=== PATIENT | male | born 1970 | race Caucasian/White ===

== ENCOUNTER 2016-07-06 15:18 | Emergency (ER) | payer MEDICARE ==
[2016-07-06] MEDS ORDERED: LEVOFLOXACIN 750MG/150ML D5W 150 ML IV ONE ×2 (15:35→16:05)
--- NOTE | 2016-07-06 15:54 | ERPHSYRPT ---
- History of Present Illness Time Seen by Provider: 07/06/16 15:48 Source: patient, family Exam Limitations: no limitations Patient Subjective Stated Complaint: lt lower leg swelling and rt lower arm swelling Triage Nursing Assessment: swelling started yesterday. lt lower leg red to below knee and swelling to lower leg and foot. pedal pulse present. rt forearm slightly swollen with no redness. no fever. Physician History: lt lower leg swelling and rt lower arm swelling swelling started yesterday. lt lower leg red to below knee and swelling to lower leg and foot. Method of Injury: unknown Occurred: yesterday Quality: constant Severity of Pain-Max: mild Severity of Pain-Current: mild Lower Extremities Pain: leg: left Modifying Factors: Improves With: nothing Associated Symptoms: none Allergies/Adverse Reactions: No Known Drug Allergies Allergy (Unverified 07/06/16 15:38) Home Medications: Baclofen 10 mg [Lioresal 10 mg] 15 mg PO QID 07/06/16 [History] Tizanidine HCl 4 mg [Zanaflex 4 MG] 2 mg PO TID 07/06/16 [History] Hx Tetanus, Diphtheria Vaccination/Date Given: Yes Hx Influenza Vaccination/Date Given: Yes Hx Pneumococcal Vaccination/Date Given: No Immunizations Up to Date: Yes - Review of Systems Constitutional: No Fever, No Chills Eyes: No Symptoms Ears, Nose, & Throat: No Symptoms Respiratory: No Cough, No Dyspnea Cardiac: No Chest Pain, No Edema, No Syncope Abdominal/Gastrointestinal: No Abdominal Pain, No Nausea, No Vomiting, No Diarrhea Genitourinary Symptoms: No Dysuria Musculoskeletal: No Back Pain, No Neck Pain Skin: Cellulitis (left leg, right arm), No Rash Neurological: No Dizziness, No Focal Weakness, No Sensory Changes Psychological: No Symptoms Endocrine: No Symptoms All Other Systems: Reviewed and Negative - Past Medical History Pertinent Past Medical History: Yes Other Medical History: 1995--horse accident--tbi - Past Surgical History Past Surgical History: Yes Other Surgical History: foot drop - Social History Smoking Status: Never smoker Exposure to second hand smoke: No Drug Use: none Patient Lives Alone: No - Nursing Vital Signs Nursing Vital Signs: Initial Vital Signs Temperature 97.5 F Temperature Source Oral Pulse Rate 107 Respiratory Rate 18 Blood Pressure [Left Arm] 176/93 - Physical Exam General Appearance: alert Eyes, Ears, Nose, Throat Exam: moist mucous membranes Neck Exam: non-tender, supple Cardiovascular/Respiratory Exam: chest non-tender, normal breath sounds, regular rate/rhythm, no respiratory distress Gastrointestinal/Abdominal Exam: non-tender, guarding Back Exam: normal inspection, No vertebral tenderness Neuro/Tendon Exam: normal sensation, normal motor functions Mental Status Exam: alert, oriented x 3, cooperative Skin Exam: normal color, warm, dry, other (redness on left leg, right arm) SpO2: 96 Oxygen Delivery: Room Air - Course Nursing assessment & vital signs reviewed: Yes Ordered Tests: Active Orders 24 hr Category Date Time Status BLOOD CULTURE Stat Lab 07/06/16 15:35 Ordered CBC W DIFF Stat Lab 07/06/16 15:35 Ordered CMP Stat Lab 07/06/16 15:35 Ordered Medication Summary Generic Name Dose Route Start Last Admin Trade Name Freq PRN Reason Stop Dose Admin Levofloxacin/Dextrose 150 mls @ 100 mls/hr 07/06/16 15:35 Levofloxacin 750mg/150ml D5w IV 07/06/16 17:04 STAT ONE - Progress Progress: unchanged Counseled pt/family regarding: diagnosis, need for follow-up - Departure Time of Disposition: 15:53 Departure Disposition: Home Clinical Impression: Left leg cellulitis, Cellulitis of right arm Condition: Stable Critical Care Time: No Referrals: CALEB VASQUEZ MD [Primary Care Provider] - Additional Instructions: levaquin 500 mg IVPB daily for 5 days as outpatient. Come to outpatient dept as per scheduled time for IVantibiotics infusion for 5 days Prescriptions: Levofloxacin [Levaquin] 500 mg IV DAILY #5 iv.acc
[2016-07-06 16:24] LABS: Mean Cell Volume 88.1 fl (78-100); Mean Corpuscular Hemoglobin 28.5 pg (26-32); Mean Platelet Volume 9.6 fl (6-9.5); Platelet Count 325 K/mm3 (150-450); Red Blood Count 4.95 M/mm3 (4.1-5.6); Red Cell Distribution Width 12.8 % (11.5-14.0); White Blood Count 7.3 K/mm3 (4.0-10.5)
[2016-07-06 16:44] LABS: ALBUMIN 3.6 g/dL (3.4-5.0); ALKALINE PHOSPHATASE 83 U/L (46-116); ANION GAP 13.5 MEQ/L (5-15); BILIRUBIN,TOTAL 0.3 mg/dL (0.2-1.0); BLOOD UREA NITROGEN 12 mg/dL (9-20); CHLORIDE 102 mEq/L (98-107); Carbon Dioxide 30.1 mEq/L (21-32); Glucose 135 MG/DL (70-110); Potassium 3.7 mEq/L (3.5-5.1); SGOT/AST 37 U/L (15-37); SGPT/ALT 74 U/L (12-78); SODIUM 142 mEq/L (136-145); Total Protein 7.6 gm/dL (6.4-8.2)
[2016-07-06 17:19] LABS: ATYPICAL LYMPHS 10 %; BAND 4 % (0.0-2.0); Basophil 1 % (0.0-1.0); Metamyelocyte 1 %; Nucleated Red Blood Cell 1 %; Platelet Estimate NORMAL (NORMAL); Total Cells Counted 100
[2016-07-06 18:28] VITALS: BP 129/70; PULSE 78; O2SAT 100
== END 2016-07-06 18:28 | disposition home or self-care (01) ==
LOC: ED 15:18
DX: L03.116 Cellulitis of left lower limb (principal); L03.113 Cellulitis of right upper limb
CPT/HCPCS: 36000; 36415; 80053; 85025; 87040; 96365; 99284; J1956

== ENCOUNTER 2016-08-16 12:24 | Emergency (ER) | payer MEDICARE ==
[2016-08-16 12:41] VITALS: O2SAT 97
--- NOTE | 2016-08-16 12:59 | ERPHSYRPT ---
- History of Present Illness Time Seen by Provider: 08/16/16 15:14 Historian: patient Exam Limitations: no limitations Patient Subjective Stated Complaint: vomiting/lt side abd pain Triage Nursing Assessment: vomited x1 this am. c/o lt side pain 09/22. no bm today--last bm normal yesterday. ate breakfast. Physician History: The patient is a 46-year-old male with his mother complaining of left-sided abdominal pain that began about 3 hours ago. He has vomited one time. He now has dry heaves. He denies fever or chills. He's had no surgeries. 20 years ago he was involved with a horse accident and was in a coma for 3 months. Timing/Duration: today, hour(s) (3) Activities at Onset: none Quality: aching Abdominal Pain Onset Location: [facility] Pain Radiation: no radiation Severity of Pain-Max: moderate Severity of Pain-Current: moderate Modifying Factors: Improves With: vomiting Associated Symptoms: vomiting Previous symptoms: no prior history Allergies/Adverse Reactions: No Known Drug Allergies Allergy (Verified 08/16/16 12:41) Home Medications: Baclofen 10 mg [Lioresal 10 mg] 15 mg PO QID 07/06/16 [History] Tizanidine HCl 4 mg [Zanaflex 4 MG] 2 mg PO TID 07/06/16 [History] Hx Tetanus, Diphtheria Vaccination/Date Given: Yes Hx Influenza Vaccination/Date Given: No Hx Pneumococcal Vaccination/Date Given: No Immunizations Up to Date: Yes - Review of Systems Constitutional: No Fever, No Chills Eyes: No Symptoms Ears, Nose, & Throat: No Symptoms Respiratory: No Cough, No Dyspnea Cardiac: No Chest Pain, No Edema, No Syncope Abdominal/Gastrointestinal: Abdominal Pain, Nausea, Vomiting Genitourinary Symptoms: No Dysuria Musculoskeletal: No Back Pain, No Neck Pain Skin: No Rash Neurological: No Dizziness, No Focal Weakness, No Sensory Changes Psychological: No Symptoms Endocrine: No Symptoms Hematologic/Lymphatic: No Symptoms Immunological/Allergic: No Symptoms All Other Systems: Reviewed and Negative - Past Medical History Pertinent Past Medical History: Yes Neurological History: Other ENT History: No Pertinent History Cardiac History: No Pertinent History Respiratory History: Sleep Apnea Endocrine Medical History: No Pertinent History Musculoskeletal History: Other GI Medical History: No Pertinent History History: No Pertinent History Psycho-Social History: No Pertinent History Male Reproductive Disorders: No Pertinent History Other Medical History: 1995--horse accident--tbi, pt abiltiy to ambulate is limited - Past Surgical History Past Surgical History: Yes Neuro Surgical History: No Pertinent History Cardiac: No Pertinent History Respiratory: No Pertinent History Gastrointestinal: No Pertinent History Genitourinary: No Pertinent History Musculoskeletal: No Pertinent History Male Surgical History: No Pertinent History Other Surgical History: foot drop - Social History Smoking Status: Never smoker Exposure to second hand smoke: No Drug Use: none Patient Lives Alone: No - Nursing Vital Signs Nursing Vital Signs: Initial Vital Signs Temperature 98.2 F Temperature Source Oral Pulse Rate 90 Respiratory Rate 18 Blood Pressure [Left Arm] 147/78 Pain Intensity 0 - Physical Exam General Appearance: mild distress Eye Exam: PERRL/EOMI, eyes nml inspection Ears, Nose, Throat Exam: normal ENT inspection, pharynx normal, moist mucous membranes Neck Exam: normal inspection, non-tender, supple, full range of motion Respiratory Exam: normal breath sounds, lungs clear, No respiratory distress Cardiovascular Exam: regular rate/rhythm, normal heart sounds Gastrointestinal/Abdomen Exam: tenderness (left side) Rectal Exam: not done Back Exam: normal inspection, normal range of motion, No CVA tenderness, No vertebral tenderness Extremity Exam: normal inspection, normal range of motion, pelvis stable Neurologic Exam: alert, oriented x 3, cooperative, normal mood/affect, nml cerebellar function, sensation nml, No motor deficits Skin Exam: normal color, warm, dry SpO2 Interpretation: normal SpO2: 97 Oxygen Delivery: Room Air - CT Exams Abdomen/Pelvis CT Interpretation: Tele-radiologist Report, Other (5 - 6 mm stone at L UPJ with mild hydronephrosis per Dr Rodriges.) Ordered Tests: Active Orders 24 hr Category Date Time Status IV Insertion STAT Care 08/16/16 13:00 Active ABDOMEN AND PELVIS W/0 CONTRAS [CT] Stat Exams 08/16/16 13:50 Taken CBC W DIFF Stat Lab 08/16/16 12:40 Completed CMP Stat Lab 08/16/16 12:40 Completed CULTURE,URINE Stat Lab 08/16/16 13:35 Received UA W/ MICROSCOPIC Stat Lab 08/16/16 13:35 Completed Medication Summary Generic Name Dose Route Start Last Admin Trade Name Freq PRN Reason Stop Dose Admin Sodium Chloride 1,000 mls @ 999 mls/hr 08/16/16 14:46 08/16/16 14:58 Sodium Chloride 0.9% 1000 Ml IV 08/16/16 15:46 999 mls/hr .Q1H1M STA Administration Discontinued Medications Generic Name Dose Route Start Last Admin Trade Name [place] PRN Reason Stop Dose Admin Sodium Chloride Confirm 08/16/16 14:52 Sodium Chloride 0.9% 1000 Ml Administered 08/16/16 14:53 Dose 1,000 mls @ ud .ROUTE .STK-MED ONE Ketorolac Tromethamine 30 mg 08/16/16 13:00 08/16/16 13:13 Toradol 30 Mg Injection IV 08/16/16 13:01 30 mg STAT ONE Administration Ketorolac Tromethamine Confirm 08/16/16 13:10 Toradol 30 Mg Injection Administered 08/16/16 13:11 Dose 30 mg .ROUTE .STK-MED ONE Ondansetron HCl 4 mg 08/16/16 13:00 08/16/16 13:12 Zofran 4 Mg/2 Ml Vial IV 08/16/16 13:01 4 mg STAT ONE Administration Ondansetron HCl Confirm 08/16/16 13:09 Zofran 4 Mg/2 Ml Vial Administered 08/16/16 13:10 Dose 4 mg .ROUTE .STK-MED ONE Tamsulosin HCl 0.4 mg 08/16/16 14:45 08/16/16 14:57 Flomax 0.4 Mg PO 08/16/16 14:46 0.4 mg DAILY STA Administration Tamsulosin HCl Confirm 08/16/16 14:52 Flomax 0.4 Mg Administered 08/16/16 14:53 Dose 0.4 mg .ROUTE .STK-MED ONE Lab/Rad Data: Laboratory Result Diagrams 08/16/16 12:40 08/16/16 12:40 Laboratory Results 08/16/16 08/16/16 08/16/16 Range/Units 13:35 12:40 12:40 WBC 9.5 (4.0-10.5) K/mm3 RBC 4.91 (4.1-5.6) M/mm3 Hgb 14.2 (12.5-18.0) gm/dl Hct 42.8 (42-50) % MCV 87.2 (78-100) fl MCH 28.9 (26-32) pg MCHC 33.2 (32-36) g/dl RDW 12.4 (11.5-14.0) % Plt Count 294 (150-450) K/mm3 MPV 10.2 H (6-9.5) fl Gran % 65.9 (36.0-66.0) % Lymphocytes % 23.8 L (24.0-44.0) % Monocytes % 9.2 (0.0-12.0) % Eosinophils % 0.7 (0.00-5.0) % Basophils % 0.4 (0.0-0.4) % Basophils # 0.04 (0-0.4) Sodium 141 (136-145) mEq/L Potassium 3.8 (3.5-5.1) mEq/L Chloride 104 (98-107) mEq/L Carbon Dioxide 26.2 (21-32) mEq/L Anion Gap 14.9 (5-15) MEQ/L BUN 9 (9-20) mg/dL Creatinine 1.05 (0.55-1.30) mg/dl Estimated GFR > 60 ML/MIN Glucose 116 H (70-110) MG/DL Calcium 9.3 (8.5-10.1) mg/dL Total Bilirubin 0.40 (0.2-1.0) mg/dL AST 30 (15-37) U/L ALT 69 (12-78) U/L Alkaline Phosphatase 81 (46-116) U/L Serum Total Protein 7.7 (6.4-8.2) gm/dL Albumin 4.0 (3.4-5.0) g/dL Ur Collection Type VOID Urine Color YELLOW (YELLOW) Urine Appearance CLEAR (CLEAR) Urine pH 5.5 (5-6) Ur Specific [place] >=1.030 (1.005-1.025) Urine Protein 30 (Negative) Urine Glucose (UA) 100 (NEGATIVE) mg/dL Urine Ketones NEGATIVE (NEGATIVE) Urine Nitrite NEGATIVE (NEGATIVE) Urine Bilirubin NEGATIVE (NEGATIVE) Urine Urobilinogen 0.2 (0-1) mg/dL Urine WBC (Auto) NEGATIVE (NEGATIVE) Urine RBC (Auto) LARGE (0-5) Chad/ul Urine Microscopic RBC 10-15 (0-2) /HPF Urine Microscopic WBC 2-5 (0-5) /HPF Ur Epithelial Cells FEW (FEW) /HPF Urine Bacteria FEW (NEGATIVE) /HPF Specimen Received 08/16/16 1335 - Progress Progress: unchanged Counseled pt/family regarding: lab results, diagnosis, need for follow-up, rad results - Departure Time of Disposition: 15:15 Departure Disposition: Home Clinical Impression: Ureterolithiasis Condition: Stable Critical Care Time: No Additional Instructions: You have a relatively large kidney stone that has just moved from your left kidney into your ureter. You were given IV fluids, Toradol 30 mg IV, and Flomax 0.4 mg in the ER. Stay well hydrated. Strain your urine to catch the stone. Take Gilby one tablet every 4 hours as needed for pain. Follow-up on Thursday. If her condition worsens, return to the ER. Prescriptions: Hydrocodone Bit/Acetaminophen [Gilby 5-325 Tablet] 1 each PO Q4H PRN PRN #15 tablet PRN Reason: Pain
[2016-08-16] MEDS ORDERED: TORAdol 30 mg Injection IV ONE (13:00)
[2016-08-16] MEDS ORDERED: Zofran 4 MG/2 ML VIAL IV ONE (13:00)
[2016-08-16 13:09] LABS: BASOPHIL % 0.4 % (0.0-0.4); Eosinophil % 0.7 % (0.00-5.0); Granulocytes % 65.9 % (36.0-66.0); Lymphocytes % 23.8 % (24.0-44.0); Mean Cell Volume 87.2 fl (78-100); Mean Corpuscular Hemoglobin 28.9 pg (26-32); Mean Platelet Volume 10.2 fl (6-9.5); Monocytes % 9.2 % (0.0-12.0); Platelet Count 294 K/mm3 (150-450); Red Blood Count 4.91 M/mm3 (4.1-5.6); Red Cell Distribution Width 12.4 % (11.5-14.0); White Blood Count 9.5 K/mm3 (4.0-10.5)
[2016-08-16] MEDS ORDERED: Zofran 4 MG/2 ML VIAL ONE (13:09)
[2016-08-16] MEDS ORDERED: TORAdol 30 mg Injection ONE (13:10)
[2016-08-16 13:20] LABS: ALKALINE PHOSPHATASE 81 U/L (46-116); ANION GAP 14.9 MEQ/L (5-15); BLOOD UREA NITROGEN 9 mg/dL (9-20); CHLORIDE 104 mEq/L (98-107); Carbon Dioxide 26.2 mEq/L (21-32); Glucose 116 MG/DL (70-110); Potassium 3.8 mEq/L (3.5-5.1); SGOT/AST 30 U/L (15-37); SGPT/ALT 69 U/L (12-78); SODIUM 141 mEq/L (136-145); Total Protein 7.7 gm/dL (6.4-8.2)
[2016-08-16 13:44] LABS: COMPLETE URINE MICROSCOPIC? YES; Collection Type VOID; Ph 5.5 (5-6)
[2016-08-16 13:45] LABS: ADD URINE CULTURE? YES (NO)
[2016-08-16 13:49] LABS: Bacteria FEW /HPF (NEGATIVE); Epithelial Cells FEW /HPF (FEW)
[2016-08-16 14:30] VITALS: BP 147/78; PULSE 90
[2016-08-16] MEDS ORDERED: Flomax 0.4 MG PO STA (14:45)
[2016-08-16] MEDS ORDERED: Sodium Chloride 0.9% 1000 ML 1,000 ML IV STA (14:46)
[2016-08-16] MEDS ORDERED: Flomax 0.4 MG ONE (14:52)
[2016-08-16] MEDS ORDERED: Sodium Chloride 0.9% 1000 ML 1,000 ML ONE (14:52)
--- NOTE | 2016-08-16 20:11 | XRAY ---
Indication: Left abdominal pain. Vomiting. Multiple contiguous axial images obtained through the abdomen and pelvis without contrast as ordered. Comparison: None Lung bases demonstrates moderate bibasilar dependent atelectasis. Heart is not enlarged. There is a 5-6 mm left UPJ calculus, approximately L3 level. Left kidney is mildly hydronephrotic without perinephric fluid consistent with partial obstruction. Nonobstructing punctate right renal calculus. Noncontrasted stomach and bowel loops appear nonobstructed. Normal appendix. No free fluid/air. Remaining liver, gallbladder, pancreas, spleen, adrenal glands, kidneys, ureters, bladder, and aorta appear unremarkable for noncontrast exam. Osseous structures intact with mild lumbar degenerative changes. Impression: 5-6 mm left UPJ calculus producing partial obstruction. Nonobstructing right renal micro-calculus. CTDI 23.68
== END 2016-08-16 16:29 | disposition home or self-care (01) ==
LOC: ED 12:24
DX: N20.1 Calculus of ureter (principal); R10.9 Unspecified abdominal pain; R11.10 Vomiting, unspecified
CPT/HCPCS: 36000; 36415; 74176; 80053; 81000; 85025; 87086; 96360; 96374; 96375; 99283; 99284; J1885; J2405; A9270-GY